=== PATIENT | female | born 1980 | race Caucasian/White ===

== ENCOUNTER 2022-01-06 12:39 | Emergency (ER) | payer SELFPAY ==
[2022-01-06 13:11] LABS: #Basophils 0.1 thou/uL (0.0-0.2); #Eosinphils 0.1 thou/uL (0.0-0.7); #Lymphocytes 2.1 thou/uL (1.20-3.40); #Monocytes 0.6 thou/uL (0.11-0.59); #Neutrophils 4.3 thou/uL (1.40-6.50); %Basophils 0.9 % (0.0-1.0); %Eosinophils 1.1 % (0.0-10.0); %Lymphocytes 29.9 % (21.0-51.0); %Monocytes 8.1 % (0.0-10.0); Hemoglobin 13.7 g/dL (12.0-16.0); Mean Corpuscular HGB CONC 34.2 g/dL (32.0-36.0); Mean Corpuscular Hemoglobin 33.8 pg (27.0-31.0); Mean Corpuscular Volume 98.7 fL (78.0-98.0); Mean Platelet Volume 7.6 fL (7.4-10.4); Platelet Count 223 thou/uL (130-400); RBC Distribution Width 12.3 % (11.5-14.5); Red Blood Cell (RBC) Count 4.06 mill/uL (4.20-5.40); White Blood Cell (WBC) Count 7.1 thou/uL (4.8-10.8)
[2022-01-06 13:37] LABS: ALT (SGPT) 11 U/L (8-55); AST (SGOT) 14 U/L (5-34); Albumin 3.8 g/dL (3.5-5.0); Alkaline Phosphatase 59 U/L (40-110); Anion Gap 12 mmol/L (10-20); BUN (Urea Nitrogen) 12 mg/dL (7.0-18.7); Bilirubin, Total 0.3 mg/dL (0.2-1.2); CK (CPK) 50 U/L (29-168); Calc. Creatinine Clearance 0 mL/min (70-130); Calcium 9.1 mg/dL (7.8-10.44); Carbon Dioxide 27 mmol/L (22-29); Chloride 106 mmol/L (98-107); Globulin 3.1 g/dL (2.4-3.5); Glucose 71 mg/dL (70-105); Potassium 4.2 mmol/L (3.5-5.1); Protein, Total 6.9 g/dL (6.0-8.3); Sodium 141 mmol/L (136-145)
[2022-01-06] MEDS ORDERED: Lorazepam 2 MG/ML VIAL ONE (14:06)
[2022-01-06] MEDS ORDERED: Ketorolac Tromethamine 30 MG/ML VIAL ONE (14:06)
== END 2022-01-06 15:10 | disposition home or self-care (01) ==
LOC: ERS 12:39
DX: R07.89 Other chest pain (principal); F41.1 Generalized anxiety disorder; F17.210 Nicotine dependence, cigarettes, uncomplicated
CPT/HCPCS: 36415; 71045; 80053; 82550; 84443; 84484; 85025; 85379; 93005; 96365; 96375; J1885; J2060